=== PATIENT | female | born 1980 | race Caucasian/White ===

== ENCOUNTER 2024-06-16 15:56 | Emergency (ER) | payer SELFPAY ==
--- NOTE | ~2024-06-16 | XR_ITS ---
EXAMINATION: XR chest 2V DATE: 06/16/2024 16:36 INDICATION: Cough and shortness of breath. TECHNIQUE: Frontal and lateral views of the chest were obtained. COMPARISON: Chest 2 views 08/05/2023 FINDINGS: There are airspace opacities in right middle lobe, consistent with pneumonia. There is stab le mild scarring at right lung apex. No pleural effusion or pneumothorax. The heart size is normal. IMPRESSION: 1. Right middle lobe pneumonia. Reviewed, dictated and finalized at location [facility]
--- NOTE | 2024-06-16 16:07 | ED.SOB ---
HPI - SOB/Dyspnea General Chief Complaint: Upper Respiratory Infection Stated Complaint: cough,SOB,using inhaler STD testing Time Seen by Provider: 06/16/24 16:06 Source: patient Mode of arrival: ambulatory Limitations: no limitations History of Present Illness HPI Narrative: Chrissie is a 43-year-old female patient presenting to the clinic today with complaints of cough, shortness of breath, and requesting STI testing. She has been having to use her new albuterol inhaler with little relief. Was having flu-like symptoms over the weekend and those symptoms have resolved however she has lingering cough and shortness of breath. Also concerned that she has trich as she is having vaginal discharge symptoms that she has had before with Trichomonas. States she has had trich multiple times. Related Data Allergies Allergy/AdvReac Type Severity Reaction Status Date / Time No Known Allergies Allergy Verified 06/16/24 16:31 Review of Systems Review of Systems: Pertinent positives per HPI. Patient denies any rash, headache, visual changes, dizziness, runny nose, sore throat, chest pain, palpitations, nausea, vomiting, diarrhea, constipation, abdominal pain, or any urinary issues. PMFSH Comments At the time of my signature, I reviewed and agree with the nursing past medical, surgical, social, and family history. There is no relevant family history pertinent to the patient complaint. Exam Narrative: General: Well-developed, well nourished, in no apparent distress Head: Normocephalic, atraumatic Eyes: Pupils equally round and reactive to light bilaterally, EOM intact, sclera and conjunctive clear, no discharge, lids normal Ears: TMs intact and clear, ear canals clear, no drainage, grossly hearing normal. Nose: Nares patent, no discharge, no inflammation, no sinus tenderness. Mouth: Oropharynx without lesions or masses, good dentition, MMM. Neck: Supple, trachea midline, no enlargement of anterior or posterior cervical nodes, no thyroid masses or goiter palpable. Cardio: Regular rate and rhythm, s1 and s2 normal, no murmur appreciated. Resp: Lung sounds diminished in the bases, no rhonchi, rales, wheezing or rubs Abdomen: Soft, pliable, bowel sounds present in all quadrants, non-tender to palpation, no organomegly, no CVAT tenderness. : Deferred. Will send for chlamydia, gonorrhea, Trichomonas via urine Course Course Emergency Course: Portions of this record may have been created with voice recognition software. Level of Care: Express Care Visit Vital Signs Vital signs: Vital signs reviewed MDM - SOB/Dyspnea MDM Narrative Medical decision making narrative: At the time of visit patient is resting comfortably on the exam table. Patient appears to be nontoxic. Labs: Gonorrhea, Trichomonas, and chlamydia testing [facility] Diagnostics: Chest x-ray shows right middle lobe pneumonia. Plan: Will treat the patient is a community-acquired pneumonia. Prescription for Augmentin and azithromycin was sent to the pharmacy. Labs sent off for vaginal discharge and we will treat any positive results as they are available. Supportive measures were discussed with the patient and they voiced understanding discharge instructions and agrees to treatment plan. Return precautions reviewed Differential Diagnosis Differential diagnosis: Likely acute exacerbation of chronic obstructive airways disease, congestive heart failure, community acquired pneumonia, asthma with exacerbation and pulmonary embolism Discharge Plan Discharge Clinical Impression: Vaginal discharge, Concern about STI in female without diagnosis Right middle lobe pneumonia Qualifiers: Pneumonia type: due to unspecified organism Qualified Code(s): J18.9 - Pneumonia, unspecified organism Patient Disposition: Home, Self-Care Condition: Stable Instructions: Antibiotic Form, Sexually Transmitted Diseases (ED), Safe Sex Practices (ED), Trichomoniasis (ED), Community Acquired Pneumonia (ED), Vaginal Discharge (ED) Additional Instructions: Chest x-ray shows right middle lobe pneumonia. We will send out lab testing for chlamydia, gonorrhea, and Trichomonas. Take prescription medications only as prescribed-Augmentin and azithromycin We have tested/treated you for STIs in the clinic today. Avoid any sexual activity- includes oral, anal, or vaginal intercourse until you get results back and have completed any additional recommended treatment regimens. We will contact you if testing is positive and make sure your treatment was appropriate for the type of STI. If symptoms persist may need to follow-up with STI clinic/PCP for further evaluation Increase fluids and stay well hydrated Tylenol/motrin for pain/fever Flonase and OTC antihistamines as directed Vicks vapor rub to open sinuses Sinus rinses for congestion Cepacol spray, cough drops, throat lozenges, warm tea with honey/lemon, gargle salt water to soothe throat BRAT diet for diarrhea Clear liquids x 24 hours then advance as tolerated for nausea/vomiting Go to the ED if you develop a worsening in your condition- high fever not controlled by Tylenol or Motrin, dehydration, weakness, lethargy, shortness of breath, or chest pain. Prescriptions: New azithromycin 250 mg tablet See Rx Instructions .ROUTE .COMPLEX Qty: 6 0RF Rx Instructions: For 250 mg dose pack: take 500 mg today (day 1), then 250 mg for 4 days (days 2-5) amoxicillin-pot clavulanate 875-125 mg tablet 1 tablet PO Q12H 7 Days Qty: 14 0RF Follow-up/Referrals: PHYSICIAN,WOOD FUEL PELLETIZER [Primary Care Provider] - Time of Disposition: 16:48 Quality NIHSS Nursing Documentation ED NIHSS nursing documentation: reviewed/agree
[2024-06-16 16:13] VITALS: BP 147/82; PULSE 101; RESP 16; TEMP 36.8; O2SAT 98
[2024-06-16 20:04] LABS: Trichomonas Vag PCR NOT DETECTED (NOT DETECTE)
[2024-06-16 20:27] LABS: Chlamydia trachomatis NOT DETECTED (NOT DETECTE); Neisseria gonorrhoeae PCR NOT DETECTED (NOT DETECTE)
== END 2024-06-16 17:10 | disposition home or self-care (01) ==
PROVIDERS: Emergency Provider Nurse Practitioner Family
DX: J18.9 Pneumonia, unspecified organism (principal); N89.8 Other specified noninflammatory disorders of vagina; Z20.2 Contact with and (suspected) exposure to infections with a predominantly sexual mode of transmission
CPT/HCPCS: 71046; 87491; 87591; 87661; 99213; G0463

== ENCOUNTER 2025-04-23 08:46 | Emergency (ER) | payer OTHER, SELFPAY ==
[2025-04-23 09:00] VITALS: BP 146/81; PULSE 78; RESP 16; TEMP 36.7; O2SAT 100
--- NOTE | 2025-04-23 09:13 | ED_ITS ---
HPI - URI/Sore Throat General Chief Complaint: Upper Respiratory Infection Stated Complaint: Sinus Time Seen by Provider: 04/23/25 09:13 Source: patient Mode of arrival: ambulatory Limitations: no limitations History of Present Illness HPI Narrative: 44-year-old female presents with complaint of nasal congestion, sinus pressure, sinus headaches, postnasal drainage for 10 days. Patient reports that drainage changed from yellow to green. Patient concern for sinus infection. States she has tried [id number] allergy medications and decongestants without relief for symptoms. Patient requesting antibiotic. All systems reviewed and negative except as noted above. Related Data Allergies Allergy/AdvReac Type Severity Reaction Status Date / Time No Known Allergies Allergy Verified 04/23/25 09:02 [facility] Past Medical History Medical History (Updated 04/23/25 @ 09:17 by Tabatha Herrera NP) Obesity Surgical History Surgical History (Updated 06/20/24 @ 10:18 by Julia Rubio) History of salpingectomy Hx of tonsillectomy History of placement of ear tubes Family History Family History (System 06/20/24 @ 10:18 by Julia Rubio) Mother Heart disease Social History Social History (System 06/20/24 @ 10:18 by Julia Rubio) Smoking packs per day: 0.5 Smoking cigarettes per day: 10.0 Years smoked: 26 Smoking pack-years: 13.00 Smoking status: Current every day smoker Second hand tobacco smoke exposure: Yes Alcohol intake: never Substance use: never Lack of Transportation: No Lack of Food: Never True Current Housing: I Have Housing Concerned About Future Housing: No Difficulty Paying Gas/Electric Bills: No Difficulty Paying for Meds: No Currently Unemployed: No Education: Trade/Vocational Certificate Difficulty w/ Childcare or Family Care: No Living arrangements: with family Spiritual care concerns: No Comments At time of signature, agree with nursing past medical, surgical, social and family history. There is no relevant family history pertinent to the presenting complaint. Exam Narrative: GENERAL: This is a well-nourished, well-developed patient, in no apparent distress. HEAD: normocephalic, atraumatic. EYES: PERRL. Sclera clear/white. Vision is grossly intact. EARS: External ears normal, auditory canals clear and without drainage, TMs normal without perforation. Hearing grossly intact. NOSE: External nose normal with Purulent nasal drainage, erythema and swelling to bilateral nares. Maxillary sinus tenderness on palpation bilaterally. THROAT: Mucous membranes moist , erythema with postnasal drainage. No swelling or exudates. NECK: Neck supple, non-tender without lymphadenopathy, masses or thyromegaly. CARDIOVASCULAR: Regular rate and rhythm without murmurs, gallops, or rubs. RESPIRATORY: Clear to auscultation. Breath sounds equal bilaterally. No wheezes, rales, or rhonchi. SKIN: warm, Dry, intact with no suspicious lesions or rash, good texture and turgor. NEURO: awake, alert, and oriented to person, place and time. There were no obvious focal neurologic abnormalities. EXTREMITIES: No joint tenderness, effusion, or edema noted. Course Course Level of Care: Express Care Visit Vital Signs Vital signs: Vital Signs Temperature 36.7 C 04/23/25 09:00 Pulse Rate 78 04/23/25 09:00 Respiratory Rate 16 04/23/25 09:00 Blood Pressure 146/81 H 04/23/25 09:00 Pulse Oximetry 100 04/23/25 09:00 Oxygen Delivery Room Air 04/23/25 09:00 Temperature 36.7 C 04/23/25 09:00 Pulse Rate 78 04/23/25 09:00 Respiratory Rate 16 04/23/25 09:00 Blood Pressure 146/81 H 04/23/25 09:00 Pulse Oximetry 100 04/23/25 09:00 Oxygen Delivery Room Air 04/23/25 09:00 Reviewed MDM - URI/Sore Throat MDM Narrative Medical decision making narrative: will treat patient for bacterial sinusitis due to duration of symptoms and exam findings. Patient is alert, nontoxic. Lungs clear to auscultation. Differential Diagnosis Differential diagnosis: Likely upper respiratory infection, sinusitis, viral infection and influenza Lab Data Labs: Lab Results 04/23/25 Range/Units 09:15 POC Influenza A Ag Negative (Negative) POC Influenza B Ag Negative (Negative) POC SARS CoV-2 Ag Negative (Negative) Discharge Plan Discharge Clinical Impression: Acute bacterial sinusitis Patient Disposition: Home Condition: Stable Instructions: Antibiotic Form, Sinusitis (ED) Additional Instructions: Take medications as prescribed. Continue nkuj-uee-yevxnjg allergy medication as directed on packaging. Take Tylenol or ibuprofen every 6-8 hours as needed for pain. Drink at least 64 oz of water a day. See your doctor symptoms are not improving. Patient Language: Estonian Prescriptions: New fluticasone propionate [Flonase Allergy Relief] 50 mcg/actuation spray,suspension 1 spray intranasal BID Qty: 16 0RF Rx Instructions: administer into each nostril amoxicillin-pot clavulanate 875-125 mg tablet 1 tablet PO Q12H 7 Days Qty: 14 0RF Follow-up/Referrals: Tk Goins MD [Primary Care Provider, Family Practice] Stand Alone Forms: Work/School Release IP Time of Disposition: 09:18
[2025-04-23 09:17] LABS: EDCOVIDSCREEN Negative (Negative); EDINFLUASCREEN Negative (Negative); EDINFLUBSCREEN Negative (Negative)
== END 2025-04-23 09:25 | disposition home or self-care (01) ==
PROVIDERS: Emergency Provider Nurse Practitioner Family; PCP Emergency Medicine
DX: J01.90 Acute sinusitis, unspecified (principal); Z20.822 Contact with and (suspected) exposure to COVID-19; F17.210 Nicotine dependence, cigarettes, uncomplicated; E66.9 Obesity, unspecified; Z68.33 Body mass index [BMI] 33.0-33.9, adult
CPT/HCPCS: 87426; 87804; 99213; G0463

== ENCOUNTER 2025-04-28 11:36 | Emergency (ER) | payer OTHER, SELFPAY ==
[2025-04-28 11:37] VITALS: BP 128/85; PULSE 87; RESP 18; TEMP 36.6; O2SAT 100
--- OUTSIDE RECORDS SUMMARY | 2025-04-28 11:38 | XMS_ITS | Clinical Summary ---
Author Organization [facility] Address [address] [place] [id number] Care Team Providers Care Geographic Information Scientist Name Role Phone Unavailable Primary Care Provider Unavailabl e Social History Tobacco Use Types Packs/Day Years Used Date Smoking Tobacco: Never Assessed Comments Unknown Sex and Gender Information Value Date Recorded Sex Assigned at Not on file Legal Sex Female 7:46 PM CDT Gender Identity Not on file Sexual Orientation Not on file Plan of Treatment Health Maintenance Due Date Last Done Comments Cervical Cancer Screening Pa p Smear (Age 30 to 64) Every 3 Years 1978 Colorectal Cancer Screening Colonoscopy (10 Years) 1978 Annual Physical 1981 Hepatitis C 1996 DTaP, Tdap and Td Vaccines ( 1 - Tdap) 1997 Hepatitis B Vaccines (1 of 3 - 19+ 3-dose series) 1997 Cervical Cancer Screening Pa p with HPV Testing (Age 30 to 64) Every 5 Years 2008 Cervical Cancer Screening with HPV 2008 Mammogram Screening 2018 COVID-19 Vaccine (2023-2 5 season) 2025 Meningococcal B Vaccine Aged Out No l onger eligible based on patient's age to complete this topic Meningococcal Vaccine Aged Out No meg kristofer eligible based on patient's age to complete this topic Pneumococcal Vaccine: Pediat rics (0 to 5 Years) and At-Risk Patients (6 to 49 Years) Aged Out No longer eligible b ased on patient's age to complete this topic RSV Immunizations Under 20 Months Aged Out No longer eligible based on patient's age to complete this topic
--- OUTSIDE RECORDS SUMMARY | 2025-04-28 11:38 | XMS_ITS | Clinical Summary ---
Author Organization [facility] [employer] Address [address] [place] [address] Care Team Providers Care Pipe Fitter Soft Copper Name Role Phone Tk Goins MD Primary Care Provider [phone] Source Comments [facility] [employer],non-owned Affiliates and Associated Physician Practices is amultiple site organization consisting of ambulatory clinics and hospital sitesin [place], [place], [place] and [place]. This disclosure is being madepursuant to the Care Everywhere program and may not contain all information available regarding this patient. Last updated 18.[facility] [employer] Allergies No known active allergies Medications * Be aware that medications may not be up to date on this document. Alwaysverify current medications with the patient. lisinopril-hydro CHLOROthiazide (PRINZIDE; ZESTORETIC) 10-12.5 MG tablet Take 1 (one) tablet by mouth once daily 0 Active nicotine (NICODERM CQ) 21 MG/24HR patch Apply 1 patch to skin once daily 0 Active fluconazole (DIFLUCAN) 200 MG tabletIndication s:Yeast infection involving the vagina and surrounding area One by mouth every other day for three doses. 3 tablet 1 0 Active Additional Information Patient not taking.Reason: Other, Reported on 03/02/2025 polyethylene glycol (Golytely) solution Drink half of prep solution at 5pm the night before colonoscopy. Finish the prep at 4am the day of test. 4000 mL 5 Active Encounters Date Type Department Care Team Description 03/02/2025 2:57 PM CDT Anesthesia Event [facility] [address] [place] [address] Yani Carballo MD 03/02/2025 1:30 PM CDT - 03/02/2025 2:15 PM CDT Surgery [facility] [address] [place] [address] Adan Broderick MD COLONOSCOPY SCREEN 03/02/2025 12:49 PM CDT - 03/02/2025 4:33 PM CDT Hospital Encounter [facility] [address] [place] [address] Adan Broderick MD Surgery General Discharge Disposition: Home or Self Care 03/02/2025 Travel 02/21/2025 Patient Outreach [facility] [address] [place] [phone] Renee Potts RN Pre-op Instructions 02/14/2025 Patient Outreach [facility] [address] [place] [phone] Dang Sargent RN from Last 3 Months Social History Tobacco Use Types Packs/Day Years Used Date Smoking Tobacco: Every Day Cigarettes Smokeless Tobacco: Never Alcohol Use Standard Drinks/Week Comments Never 0 (1 standard drink = 0.6 oz pur e alcohol) AUDIT-C Answer Date Recorded Q1: How often do you have a drink containing alc ohol? Never 05/08/2020 Average Number of Drinks Not on file 020 Frequency of Binge Drinking Not on file 04/11 Comments No Sex and Gender Information Value Date Recorded Sex Assigned at Not on file Legal Sex Female 5:33 AM COMPENSATION DIRECTOR Gender Identity Not on file Sexual Orientation Not on file Last Filed Vital Signs Vital Sign Reading Time Taken Comments Blood Pressure 129/84 03/02/2025 4:20 PM CDT Pulse 77 03/02/2025 4:20 PM CDT Temperature 36.5 C (97.7 F) 03/02/2025 3:39 PM CDT Respiratory Rate 15 03/02/2025 4:20 PM CDT Oxygen Saturation 98% 03/02/2025 4:20 PM CDT Inhaled Oxygen Concentration - - Weight 81.2 kg (179 lb) 03/02/2025 1:28 PM CDT Height 160 cm (5' 3) 03/02/2025 1:28 PM CDT Body Mass Index 31.71 03/02/2025 1:28 PM CDT Plan of Treatment Health Maintenance Due Date Last Done Comments COLOGUARD (AGES 45-75) - COL ON CA SCREENING 1978 CT COLONOGRAPHY - COLON CA SCREENING 1978 FIT - COLON CA SCREENING 1978 FLEX SIG - COLON CA SCREENING 1978 LIPID TESTING 1978 MAMMOGRAM 1978 HIV SCREENING 1993 HEPATITIS C SCREENING 10/09/1996 DTAP/TDAP/TD VACCINES (1 - Tdap) 1997 HEPATITIS B VACCINE (1 of 3 - 19+ 3-dose series) 1997 PNEUMOCOCCAL VACCINE (1 of 2 - PCV) 1997 PAP SMEAR 10/15/1999 SCREENING FOR DIABETES 05/08/2020 DEPRESSION SCREENING 08/10/2024 COVID-19 VACCINE (1 - 2023-2 5 season) 2025 INFLUENZA VACCINE (#1) 2025 ZOSTER VACCINE (1 of 2) 2028 COLON MONITORING 03/02/2035 03/02/2025, 03/02/2025 COLONOSCOPY - COLON CA SCREENING 03/02/2035 03/02/2025, 03/02/2025 Colorectal Cancer Screening 03/02/2035 HIB VACCINE Aged Out No longer eligi ble based on patient's age to complete this topic HPV VACCINE Aged Out No longer eligi ble based on patient's age to complete this topic MENINGOCOCCAL (Group B) VACCINE SHARED DECISION-MAKING Aged Out No longer eligible based on patient's age to complete this topic MENINGOCOCCAL GROUPS A/C/Y/W VACCINE Aged Out No longer eligible b ased on patient's age to complete this topic Procedures Procedure Name Priority Date/Time Associated Diagnosis Comments PATHOLOGY TISSUE Routine 03/02/2025 3:16 PM CDT Screen for colon cancer [place] COLOREC CANC SCRN,SCOPY NOT HI RISK 03/02/2025 2:52 PM CDT Screen for colon cancer ENDOSCOPY, COLON, SCREENING Routine 03/02/2025 2:37 PM CDT HCG URINE QUAL POCT NOTIFICATION STAT 03/02/2025 1:14 PM CDT Preop testing from Last 3 Months Results * PATHOLOGY TISSUE (03/02/2025 3:16 PM CDT) Case Report Surgical Pathology Report Case: [id number] Authorizing Provider: Adan Broderick MD Collected: 03/02/2025 03:16 PM Ordering Location: [facility] Received: 03/03/2025 07:45 AM Pathologist: Josef Alarcon MD Specimen: Polyp Colon, Colon polyps x8 03/06/2025 8:33 AM CDT [facility] Final Diagnosis Colonic polyps, polypectomy: - Sessile serrated adenomas (4). - Negative for high-grade dysplasia. 03/06/2025 8:33 AM T [facility] at 0833 CDT Microscopic Description and Comment Microscopic examination is performed and supports the final diagnosis. There is no evidence of dysplasia. 03/06/2025 8:33 AM CDT [facility] Clinical History Screening colonoscopy, multiple colonic polyps (8 sessile polyps) 03/06/2025 8:33 AM T [facility] Gross Description The requisition and specimen(s) are identified with the patient's name Chrissie Murillo. Received in formalin, labeled specimen A, are 4 pieces of polypoid alonso tissue ranging in size from 0.4-0.9 cm in greatest dimension, submitted in toto in cassette A1. DF 03/06/2025 8:33 AM CDT [facility] Pathologist Location at [facility] 03/06/2025 8:33 AM CDT [facility] Disclaimer The performance characteristics of all immunohistochemical and indirect immunofluorescence stains (if any) cited in this report were determined by the Histopathology Laboratory of [facility]. Some of these tests were developed by our own laboratory and have not been cleared or approved by the US Food and Drug Administration. The FDA does not require this test to go through premarket FDA review. These tests are used for clinical purposes. They should not be regarded as investigational or for research. This laboratory is certified under the Clinical Laboratory Improvement Amendments (CLIA) as qualified to perform high complexity clinical laboratory testing. This case has been personally reviewed and interpreted by the attending (teaching) pathologist. 03/06/2025 8:33 AM CDT [facility] Embedded Images 03/06/2025 8:33 AM CDT [facility] Biopsy, NOS POLYP OF COLON / Unknown 03/02/2025 3:16 PM CDT 03/03/2025 7:45 AM CDT Comment:Pre-op diagnosis: Screen for colon cancer [Z12.11] us Adan Broderick MD LAB - PATHOLOGY/CYTOLOGY ORDERA SOPHIA Final Result [facility] [address] [place] [address], [facility] [phone] * ENDOSCOPY, COLON, SCREENING (03/02/2025 2:37 PM CDT) Report Endoscopy POC Endoscopy Department Report _ Patient Name: Chrissie Murillo Procedure Date: 03/02/2025 2:37 PM Date of : 1980 Classification: Outpatient Gender: Female Ethnicity: Not or Race: White _ Providers: Adan Borderick MD Referring MD: Procedure: Colonoscopy Indications: Screening for malignant neoplasm in the colon Description of Procedure: Pre-Anesthesia Assessment: - ASA Grade Assessment: II - A patient with mild systemic disease. After I obtained informed consent, the scope was passed under direct vision. Throughout the procedure, the patient's blood pressure, pulse, and oxygen saturations were monitored continuously. The Colonoscope was introduced through the anus and advanced to the cecum, identified by appendiceal orifice and ileocecal valve. The colonoscopy was performed without difficulty. The patient tolerated the procedure well. The quality of the bowel preparation was adequate. The ileocecal valve, appendiceal orifice, and rectum were photographed. Findings: Eight sessile polyps were found in the rectum, sigmoid colon and descending colon. The polyps were 2 to 11 mm in size. These polyps were removed with a cold snare. Resection and retrieval were complete. The exam was otherwise without abnormality. Estimated Blood Loss: Estimated blood loss: none. Complications: No immediate complications. Impression: - Eight 2 to 11 mm polyps in the rectum, in the sigmoid colon and in the descending colon, removed with a cold snare. Resected and retrieved. - The examination was otherwise normal. Recommendation: - Await pathology results. - Repeat colonoscopy in 1 year. - Advance diet as tolerated. Procedure Code(s): --- Professional --- 31619, Colonoscopy, flexible; with removal of tumor(s), polyp(s), or other lesion(s) by snare technique Diagnosis Code(s): --- Professional --- Z12.11, Encounter for screening for malignant neoplasm of colon D12.8, Benign neoplasm of rectum D12.5, Benign neoplasm of sigmoid colon D12.4, Benign neoplasm of descending colon CPT copyright 2021 [employer]. All rights reserved. The codes documented in this report are preliminary and upon guillotine operator review may be revised to meet current compliance requirements. Adan Broderick MD 03/02/2025 3:30:13 PM Note Initiated On: 03/02/2025 2:37 PM Number of Addenda: [address] [address] [facility] 03/02/2025 2:37 PM CDT Adan Broderick MD GI PROCEDURE ORDERABLES Edited Result - Final [facility] * HCG URINE QUAL POCT NOTIFICATION (03/02/2025 1:14 PM CDT) Comment Notification Label Only - See Separate Report 03/02/2025 2:32 PM CDT [facility] Urine URINE / Unknown 03/02/2025 1 :14 PM CDT 03/02/2025 1:14 PM CDT Adan Broderick MD LAB - URINALYSIS ORDERABLES Fin al Result [facility] [address] [place] [address], [facility] [phone] from Last 3 Months Insurance [facility] Care Teams Pipe Fitter Soft Copper Relationship Specialty Start Date End Date Tk Goins MD [address] [place] [id number] PCP - General Family Medicine 11/30/24
--- OUTSIDE RECORDS SUMMARY | 2025-04-28 12:06 | XMS_ITS | Clinical Summary ---
Author Organization [facility] Address [address] [place] [id number] Care Team Providers Care Felt Tipping Machine Tender Name Role Phone Unavailable Primary Care Provider [...]
--- NOTE | 2025-04-28 12:15 | ED_ITS ---
HPI - Extremity Problem General Chief complaint: Extremity Injury, Upper Stated complaint: carpal tunnel pain Time Seen by Provider: 04/28/25 11:55 Source: patient Mode of arrival: ambulatory Limitations: no limitations History of Present Illness HPI Narrative: Chrissie is a 44-year-old female patient presenting to the ER today with complaints of bilateral wrist pain, numbness, and tingling in her fingers. She reports this has been going for quite some time. She works in [employer] and does a handling items, lifting, grasping, and performing repetitive motions. Reports she is having pain over the wrist bilaterally with numbness and tingling in her hand and fingers. Denies any neck pain or injury. Denies any pain in her shoulders or elbows. Pain does not radiate up into her elbow or forearm. Has been taking ibuprofen without relief. Rates her pain currently a 7/10. She is a current smoker. Related Data Allergies Allergy/AdvReac Type Severity Reaction Status Date / Time No Known Allergies Allergy Verified 04/28/25 12:10 Review of Systems Review of Systems: Pertinent positives per HPI. Patient denies any fever, chills, rash, headache, visual changes, dizziness, cough, runny nose, sore throat, shortness of breath, chest pain, palpitations, nausea, vomiting, diarrhea, constipation, abdominal pain, or any urinary issues. [facility] Past Medical History Medical History Obesity Surgical History Surgical History History of salpingectomy Hx of tonsillectomy History of placement of ear tubes Family History Family History Mother Heart disease Social History Social History Smoking packs per day: 0.5 Smoking cigarettes per day: 10.0 Years smoked: 26 Smoking pack-years: 13.00 Smoking status: Current every day smoker Second hand tobacco smoke exposure: Yes Alcohol intake: never Substance use: never Lack of Transportation: No Lack of Food: Never True Current Housing: I Have Housing Concerned About Future Housing: No Difficulty Paying Gas/Electric Bills: No Difficulty Paying for Meds: No Currently Unemployed: No Education: Trade/Vocational Certificate Difficulty w/ Childcare or Family Care: No Living arrangements: with family Spiritual care concerns: No Comments At the time of my signature, I reviewed and agree with the nursing past medical, surgical, social, and family history. There is no relevant family history pertinent to the patient complaint. Exam Narrative: General: Well-developed, obese, in no apparent distress Head: Normocephalic, atraumatic. Cardio: Regular rate and rhythm, s1 and s2 normal, no murmur appreciated. Resp: Clear to auscultation bilaterally, no rhonchi, rales, wheezing or rubs. Musculoskeletal: No deformity, tender to palpation over bilateral wrist, positive Tinel's sign in the bilateral breasts, positive Phalen's testing, grossly normal range of motion, hand grasp moderate and equal, peripheral pulse strong, no edema, no cyanosis, normal gait and station Course Course Emergency Course: Portions of this record may have been created with voice recognition software. Vital Signs Vital signs: Vital Signs Temperature 36.6 C 04/28/25 11:37 Pulse Rate 87 04/28/25 11:37 Respiratory Rate 18 04/28/25 11:37 Blood Pressure 128/85 04/28/25 11:37 Pulse Oximetry 100 04/28/25 11:37 Oxygen Delivery Room Air 04/28/25 11:37 Temperature 36.6 C 04/28/25 11:37 Pulse Rate 87 04/28/25 11:37 Respiratory Rate 18 04/28/25 11:37 Blood Pressure 128/85 04/28/25 11:37 Pulse Oximetry 100 04/28/25 11:37 Oxygen Delivery Room Air 04/28/25 11:37 Vital signs reviewed MDM - Extremity (Nontraumatic) MDM Narrative Medical decision making narrative: At the time of visit patient is resting comfortably on the exam table. Patient appears to be nontoxic. complaints of bilateral wrist pain, numbness, and tingling in her fingers. She reports this has been going for quite some time. She works in [employer] and does a handling items, lifting, grasping, and pe rforming repetitive motions. Reports she is having pain over the wrist bilaterally with numbness and tingling in her hand and fingers. Denies any neck pain or injury. Denies any pain in her shoulders or elbows. Pain does not radiate up into her elbow or forearm. Has been taking ibuprofen without relief. Rates her pain currently a 7/10. On exam patient has positive Phalen's and positive Tinel's sign over the bilateral volar wrist. Hand grasp is moderately strong and equal. Plan: I suspect patient has bilateral carpal tunnel syndrome. Prescription for Medrol Dosepak was sent to the pharmacy. Recommend wrist cock-up splints to wear during the daytime when she is active and at nighttime when she is sleeping. Follow-up with PCP on Thursday as scheduled-will likely need a referral for an EMG study. Supportive measures were discussed with the patient and they voiced understanding discharge instructions and agrees to treatment plan. Return precautions reviewed Differential Diagnosis Differential diagnosis: Likely other (Carpal tunnel, wrist tendinitis, cervical radiculopathy) Discharge Plan Discharge Clinical Impression: Bilateral carpal tunnel syndrome Patient Disposition: Home Condition: Stable Instructions: Antibiotic Form, Carpal Tunnel Syndrome (DC) Additional Instructions: I suspect you likely have bilateral carpal tunnel syndrome. Wear cock-up wrist splints to both wrist. Wear at night time when sleeping and throughout the day when performing lifting, grasping, or carrying Take Medrol dose pack as prescribed. Follow up with your PCP as scheduled- will likely need EMG referral Patient Language: Comoran Prescriptions: New methylprednisolone [Medrol (Donald)] 4 mg tablets,dose pack See Rx Instructions PO .COMPLEX Qty: 21 0RF Rx Instructions: orally per package directions No Action fluticasone propionate [Flonase Allergy Relief] 50 mcg/actuation spray,suspension 1 spray intranasal BID Qty: 16 0RF Rx Instructions: administer into each nostril amoxicillin-pot clavulanate 875-125 mg tablet 1 tablet PO Q12H 7 Days Qty: 14 0RF Follow-up/Referrals: Tk Goins MD [Primary Care Provider, Family Practice] Stand Alone Forms: Work/School Release IP Time of Disposition: 12:19 Quality NIHSS Nursing Documentation ED NIHSS nursing documentation: reviewed/agree
== END 2025-04-28 12:36 | disposition home or self-care (01) ==
PROVIDERS: Emergency Provider Nurse Practitioner Family; PCP Emergency Medicine
DX: G56.03 Carpal tunnel syndrome, bilateral upper limbs (principal); E66.9 Obesity, unspecified; Z68.31 Body mass index [BMI] 31.0-31.9, adult; F17.210 Nicotine dependence, cigarettes, uncomplicated; Z90.79 Acquired absence of other genital organ(s)
CPT/HCPCS: 99283